=== PATIENT | female | born 1980 | race Two or more races ===

== ENCOUNTER 2020-07-18 04:19 | Emergency (ER) | payer OTHER ==
[~2020-07-18] VITALS: Ht 162.6 cm; Wt 78.0 kg
[2020-07-18 05:25] LABS: APPEARANCE,URINE CLEAR (CLEAR); BILIRUBIN,URINE NEGATIVE (NEGATIVE); GLUCOSE, URINE (UA) NEGATIVE (NEGATIVE); KETONES,URINE NEGATIVE (NEGATIVE); LEUKOCYTE ESTERASE ,URINE NEGATIVE (NEGATIVE); NITRATE,URINE NEGATIVE (NEGATIVE); OCCULT BLOOD,URINE NEGATIVE (NEGATIVE); PROTEIN,URINE NEGATIVE (NEGATIVE); UROBILINOGEN,URINE 0.2 mg/dL (<=1.0)
[2020-07-18 05:38] VITALS: BP 117/72
== END 2020-07-18 06:18 | disposition home or self-care (01) ==
LOC: EMS 04:20
DX: Z11.1 Encounter for screening for respiratory tuberculosis (principal)
CPT/HCPCS: 71046; 81003; 99284